=== PATIENT | female | born 1985 | race Caucasian/White ===

== ENCOUNTER 2019-10-10 17:49 | Emergency (ER) | payer SELFPAY ==
[2019-10-10 18:27] VITALS: TEMP 98.2; BMI 27.4
--- NOTE | 2019-10-10 18:51 | PDOC ---
History of Present Illness - General Chief Complaint: Pain Stated Complaint: HIP PAIN Time Seen by Provider: 10/10/19 18:50 History Source: Patient - History of Present Illness Initial Comments: 10/10/19 18:56 Chief complaint: Hip pain Patient is a healthy 34-year-old female, patient is due for Depo shot in November who has sudden right hip pain after waking up at 10 AM. Patient has not taken any pain medicine but was unable to go to work. No numbness, dysuria, fever. Patient is ambulatory. GENERAL/CONSTITUTIONAL: No fever, weakness. dizziness HEAD, EYES, EARS, NOSE AND THROAT: No change in vision. No ear pain or discharge. No sore throat. CARDIOVASCULAR: No chest pain RESPIRATORY: No shortness of breath or cough GASTROINTESTINAL: No pain, nausea, vomiting, diarrhea or constipation GENITOURINARY: No dysuria MUSCULOSKELETAL: No neck or back pain SKIN: No rash NEUROLOGIC: No headache, vertigo, loss of consciousness, or loss of sensation. GENERAL: The patient is awake, alert, and fully oriented, in no acute distress. HEAD: Normal with no signs of trauma. EYES: Pupils equal, round and reactive to light, sclera anicteric, conjunctiva clear. ENT: pharynx: no erythema, no exudate, uvula midline NECK: supple CHEST: clear, nontender, rr ABD: soft, nontender BACK: no tenderness or signs of injury EXTREMITIES: Right hip with mild tenderness on the lower pelvic area. No deformity, no calf tenderness, no thigh tenderness, no signs of infection or swelling. Neurovascular intact. Rest of extremities, normal range of motion, no edema. NEUROLOGICAL: Normal speech, no focal deficits SKIN: Warm, Dry 10/10/19 20:45 Past History - Past Medical History Allergies/Adverse Reactions: Allergies Allergy/AdvReac Type Severity Reaction Status Date / Time No Known Allergies Allergy Verified 10/10/19 18:55 Home Medications: Ambulatory Orders NK [No Known Home Medication] 10/10/19 - Psycho Social/Smoking Cessation Hx Smoking History: Current every day smoker Number of Cigarettes Smoked Daily: 10 Information on smoking cessation initiated: No Hx Alcohol Use: No Drug/Substance Use Hx: No *Physical Exam - Vital Signs Last Vital Signs Temp Pulse Resp BP Pulse Ox 98.2 F 80 17 121/79 100 10/10/19 18:24 10/10/19 18:24 10/10/19 18:24 10/10/19 18:24 10/10/19 18:24 Medical Decision Making - Medical Decision Making 10/10/19 21:14 Healthy 34-year-old female with right hip pain after she woke up this morning. Patient is ambulatory but having pain with walking, no fever. Patient has tenderness to the posterior buttocks, no numbness, incontinence, saddle anesthesia or signs of infection. Patient will get test, check a UA, get an x-ray, Toradol and reassess test is negative, UA is negative, patient got Toradol, x-ray does not show any acute injury. Patient feels better after Toradol will discharge home. Discussed issues, findings, results, applicable medications and treatments and follow-up. All these were understood and all questions were answered Discharge - Discharge Information Problems reviewed: Yes Clinical Impression/Diagnosis: Hip pain, right Condition: Stable Disposition: HOME - Admission No - Follow up/Referral Referrals: Baltazar Howell MD [Staff Physician] - - Patient Discharge Instructions Additional Instructions: No heavy lifting or bending Apply ice to the area 20 minutes every 2 hours for the next 2 days Continue taking Motrin 600 mg every 6 hours for pain. Return to the nearest ER if numbness, weakness, severe pain, problems with urinating or having bowel movements. Call orthopedist today for an appointment for further evaluation - Post Discharge Activity
[2019-10-10] MEDS ORDERED: ACETAMINOPHEN 325 MG TABLET (FP) PO ONE (18:55)
[2019-10-10] MEDS ORDERED: ACETAMINOPHEN 325 MG TABLET (FP) ONE (18:59)
[2019-10-10 19:40] LABS: HCG,QUALITATIVE URINE Negative
[2019-10-10 20:12] LABS: URINE KETONE TRACE (NEGATIVE); URINE PROTEIN 1+ (NEGATIVE)
[2019-10-10 20:13] LABS: PH,URINE 8.5 (5.0-8.0); URINE APPEARANCE CLEAR; URINE BILIRUBIN NEGATIVE (NEGATIVE); URINE COLOR YELLOW; URINE GLUCOSE (UA) NEGATIVE (NEGATIVE); URINE LEUK ESTERASE NEGATIVE (NEGATIVE); URINE NITRITE NEGATIVE (NEGATIVE)
[2019-10-10] MEDS ORDERED: KETOROLAC TROMETHAMINE 60 MG/2 ML VIAL IM ONE (20:15)
[2019-10-10] MEDS ORDERED: KETOROLAC TROMETHAMINE 60 MG/2 ML VIAL ONE (20:37)
[2019-10-10 22:04] VITALS: BP 128/77; PULSE 75
== END 2019-10-10 21:16 | disposition home or self-care (01) ==
LOC: JERFT 17:49
PROC: 3E0233Z Introduction of Anti-inflammatory into Muscle, Percutaneous Approach (ICD-10-PCS; principal; 2019-10-10)
DX: M25.551 Pain in right hip (principal); F17.210 Nicotine dependence, cigarettes, uncomplicated
CPT/HCPCS: 73523-TC-FY; 81003; 84703; 87077; 87086; 99284-25

== ENCOUNTER 2021-05-20 18:30 | Emergency (ER) | payer OTHER ==
[2021-05-20 18:51] VITALS: BP 132/90; PULSE 99; TEMP 98; BMI 27.4
[2021-05-20] MEDS ORDERED: KETOROLAC TROMETHAMINE 60 MG/2 ML VIAL IM ONE (20:59)
[2021-05-20] MEDS ORDERED: KETOROLAC TROMETHAMINE 60 MG/2 ML VIAL ONE (21:01)
== END 2021-05-20 21:06 | disposition home or self-care (01) ==
LOC: JERFT 18:30
PROC: 3E023GC Introduction of Other Therapeutic Substance into Muscle, Percutaneous Approach (ICD-10-PCS; principal; 2021-05-20)
DX: S00.83XA Contusion of other part of head, initial encounter (principal); S10.83XA Contusion of other specified part of neck, initial encounter; H11.31 Conjunctival hemorrhage, right eye; Y04.8XXA Assault by other bodily force, initial encounter
CPT/HCPCS: 99284-25

== ENCOUNTER 2021-06-26 20:59 | Emergency (ER) | payer OTHER ==
[2021-06-26 21:15] VITALS: BP 125/90; PULSE 116; TEMP 97.9; BMI 305.5
[2021-06-26] MEDS ORDERED: diazePAM 5 MG TABLET PO ONE (21:52)
[2021-06-26] MEDS ORDERED: diazePAM 5 MG TABLET ONE (22:12)
[2021-06-26 23:21] LABS: BASO % 1.9 % (0-2.0); EOS % 0.4 % (0-4.5); HEMATOCRIT 48.1 % (32.4-45.2); HEMOGLOBIN 16.6 GM/dL (10.7-15.3); MCHC 34.5 g/dl (32.0-36.0); MEAN CELL VOLUME 98.4 fl (80-96); MEAN PLT VOLUME 8.5 fl (7.5-11.1); MONO % 10.4 % (3.8-10.2); NEUT % 65.3 % (42.8-82.8); PLATELET COUNT 269 10^3/uL (134-434); RBC 4.89 M/mm3 (3.60-5.2); RDW 13.3 % (11.6-15.6); WHITE BLOOD COUNT 8.7 K/mm3 (4.0-10.0)
[2021-06-26 23:29] LABS: CALCIUM 9.3 mg/dL (8.5-10.1)
[2021-06-26 23:30] LABS: ALBUMIN 4.3 g/dl (3.4-5.0); BLOOD UREA NITROGEN 4.2 mg/dL (7-18)
[2021-06-26 23:33] LABS: CREATININE 0.6 mg/dL (0.55-1.3)
[2021-06-26 23:35] LABS: BILIRUBIN,TOTAL 0.8 mg/dL (0.2-1); TOT PROT 8.5 g/dl (6.4-8.2)
== END 2021-06-26 23:50 | disposition home or self-care (01) ==
LOC: JER 20:59
DX: F10.230 Alcohol dependence with withdrawal, uncomplicated (principal)
CPT/HCPCS: 36415; 80053; 80307; 85025; 93005; 93010; 99284-25

== ENCOUNTER 2021-06-27 01:07 | Inpatient (IN) | payer OTHER ==
[2021-06-27 01:58] VITALS: BMI 31.0
[2021-06-27] MEDS ORDERED: METHOCARBAMOL 500 MG TABLET PO PRN (03:29)
[2021-06-27] MEDS ORDERED: BISMUTH SUBSALICYLATE 524 MG/30 ML PO PRN (03:29)
[2021-06-27] MEDS ORDERED: ONDANSETRON *ODT* 4 MG TABLET SL PRN (03:29)
[2021-06-27] MEDS ORDERED: IBUPROFEN 400 MG TABLET (FP) PO PRN (03:29)
[2021-06-27] MEDS ORDERED: MAG HYDROX/AL HYDROX/SIMETH 30 ML UNIT-DOSE CUP PO PRN (03:29)
[2021-06-27] MEDS ORDERED: ACETAMINOPHEN 325 MG TABLET (FP) PO PRN ×2 (03:29)
[2021-06-27] MEDS ORDERED: MENTHOL/PHENOL 1 EACH UD MM PRN (03:29)
[2021-06-27] MEDS ORDERED: MAGNESIUM CITRATE 300 ML BOTTLE PO PRN (03:29)
[2021-06-27] MEDS ORDERED: MAGNESIUM HYDROX 2400MG/30ML ORAL SUSPENSION 30 ML CUP PO PRN (03:29)
[2021-06-27] MEDS ORDERED: diazePAM 5 MG TABLET PO PRN (03:38)
[2021-06-27] MEDS: diazePAM 5 MG TABLET PO SCH ×4 (04:31→22:18)
[2021-06-27] MEDS: PRENATAL VITAMINS W/ FOLIC ACID TABLET (FP) PO SCH (11:06)
[2021-06-27] MEDS: NICOTINE 21 MG/24 HOURS TOPICAL PATCH TD SCH (11:06)
[2021-06-27] MEDS ORDERED: MELATONIN 5 MG TABLETS PO SCH (22:00)
[2021-06-27] MEDS: THIAMINE HCL 100 MG TABLET (FP) PO SCH (22:19)
[2021-06-27] MEDS: MELATONIN 5 MG TABLETS PO SCH (22:19)
[2021-06-28] MEDS: diazePAM 5 MG TABLET PO SCH ×3 (05:22→22:14)
[2021-06-28] MEDS: NICOTINE 21 MG/24 HOURS TOPICAL PATCH TD SCH ×2 (10:32→11:05)
[2021-06-28] MEDS: PRENATAL VITAMINS W/ FOLIC ACID TABLET (FP) PO SCH (10:34)
[2021-06-28] MEDS: MELATONIN 5 MG TABLETS PO SCH (22:13)
[2021-06-28] MEDS: THIAMINE HCL 100 MG TABLET (FP) PO SCH (22:13)
[2021-06-29] MEDS: diazePAM 5 MG TABLET PO SCH ×2 (06:12→17:38)
[2021-06-29] MEDS: PRENATAL VITAMINS W/ FOLIC ACID TABLET (FP) PO SCH (10:28)
[2021-06-29] MEDS: NICOTINE 21 MG/24 HOURS TOPICAL PATCH TD SCH (10:29)
[2021-06-29] MEDS: MELATONIN 5 MG TABLETS PO SCH (22:07)
[2021-06-29] MEDS: THIAMINE HCL 100 MG TABLET (FP) PO SCH (22:07)
[2021-06-30] MEDS ORDERED: diazePAM 5 MG TABLET PO ONE (06:00)
[2021-06-30 09:35] VITALS: BP 136/88; PULSE 108; TEMP 97.8
== END 2021-06-30 09:42 | disposition home or self-care (01) | DRG 897 ==
LOC: YASAS 01:07 → Y6N 03:50
PROVIDERS: ADMIT Allergy & Immunology; ATTEND Allergy & Immunology
PROC: HZ2ZZZZ Detoxification Services for Substance Abuse Treatment (ICD-10-PCS; principal; 2021-06-27)
DX: F10.230 Alcohol dependence with withdrawal, uncomplicated (principal); F17.210 Nicotine dependence, cigarettes, uncomplicated; F10.282 Alcohol dependence with alcohol-induced sleep disorder; F41.8 Other specified anxiety disorders; F32.A Depression, unspecified; I49.8 Other specified cardiac arrhythmias; J45.909 Unspecified asthma, uncomplicated; K21.9 Gastro-esophageal reflux disease without esophagitis
CPT/HCPCS: 81025; 93005; 93010; C9803; U0003; U0005

== ENCOUNTER 2021-10-09 07:44 | Emergency (ER) | payer OTHER ==
[2021-10-09 08:11] VITALS: BMI 30.9
[2021-10-09] MEDS ORDERED: SODIUM CHLORIDE 0.9% 500 ML INFUS.BAG IV ONE (08:53)
[2021-10-09 09:41] LABS: BASO % 0.8 % (0-2.0); EOS % 1.1 % (0-4.5); HEMOGLOBIN 15.7 GM/dL (10.7-15.3); LYMPH % 35.9 % (8-40); MCH 35.1 pg (25.7-33.7); MEAN CELL VOLUME 100.2 fl (80-96); MEAN PLT VOLUME 8.3 fl (7.5-11.1); MONO % 7.9 % (3.8-10.2); NEUT % 54.3 % (42.8-82.8); PLATELET COUNT 219 10^3/uL (134-434); RBC 4.49 M/mm3 (3.60-5.2); WHITE BLOOD COUNT 6.6 K/mm3 (4.0-10.0)
[2021-10-09 09:44] LABS: CHLORIDE 110 mmol/L (98-107); SODIUM 141 mmol/L (136-145)
[2021-10-09 09:45] LABS: CALCIUM 8.7 mg/dL (8.5-10.1)
[2021-10-09 09:46] LABS: ALBUMIN 4.2 g/dl (3.4-5.0); ANION GAP 9 MMOL/L (8-16); BLOOD UREA NITROGEN 4.7 mg/dL (7-18); CO2 23 mmol/L (21-32); GLUCOSE,RANDOM 97 mg/dL (74-106); MAGNESIUM 2.6 mg/dL (1.8-2.4)
[2021-10-09 09:49] LABS: CREATININE 0.6 mg/dL (0.55-1.3); SGOT/AST 135 U/L (15-37); SGPT/ALT 181 U/L (13-61)
[2021-10-09 09:50] LABS: BILIRUBIN,TOTAL 0.4 mg/dL (0.2-1); TOT PROT 7.7 g/dl (6.4-8.2)
[2021-10-09 09:52] LABS: ALK PHOS 88 U/L (45-117)
[2021-10-09 09:54] LABS: INR 1.02 (0.83-1.09); PROTHROMBIN TIME (PATIENT) 11.7 SEC (9.7-13.0)
[2021-10-09 09:57] LABS: ACTIVATED PTT 33.2 SECONDS (25.2-36.5)
[2021-10-09 12:55] VITALS: BP 95/57; PULSE 85
== END 2021-10-09 15:14 | disposition home or self-care (01) ==
LOC: JER 07:44
DX: F10.129 Alcohol abuse with intoxication, unspecified (principal)
CPT/HCPCS: 36415; 70450-TC; 71045-TC-FY; 72125-TC; 80053; 80307; 82550; 82553; 83735; 84702; 85025; 85610; 85730; 93005; 93010; 99285-25